=== PATIENT | male | born 1980 | race African-American/Black ===

== ENCOUNTER 2017-10-15 20:28 | Emergency (ER) | payer OTHER ==
[~2017-10-15] VITALS: Ht 185.4 cm; Wt 102.1 kg
[2017-10-15] MEDS ORDERED: TIZANIDINE HCL4 MG PO (22:13)
[2017-10-15] MEDS ORDERED: ULTRAM 50MG TAB50 MG PO (22:16)
[2017-10-15 22:45] VITALS: BP 122/70
== END 2017-10-15 22:46 | disposition home or self-care (01) ==
LOC: ER 20:28
DX: S46.811A Strain of other muscles, fascia and tendons at shoulder and upper arm level, right arm, initial encounter (principal); S50.02XA Contusion of left elbow, initial encounter; M54.2 Cervicalgia; V43.52XA Car driver injured in collision with other type car in traffic accident, initial encounter; Y93.89 Activity, other specified; Y92.89 Other specified places as the place of occurrence of the external cause; Y99.8 Other external cause status

== ENCOUNTER 2017-10-25 23:03 | Emergency (ER) | payer OTHER ==
[~2017-10-25] VITALS: Ht 185.4 cm; Wt 86.2 kg
[~2017-10-25 23:03] MED LIST: TIZANIDINE HCL4 MG PO; ULTRAM 50MG TAB50 MG PO
[2017-10-25] MEDS ORDERED: NORCO 5-325 TA1 EACH PO (23:18)
[2018-07-13] MEDS ORDERED: NORFLEX100 MG PO (00:17)
[2018-07-13] MEDS ORDERED: NAPROSYN500 MG PO (00:17)
== END 2017-10-25 23:53 | disposition home or self-care (01) ==
LOC: ER 23:03
DX: S16.1XXA Strain of muscle, fascia and tendon at neck level, initial encounter (principal); M25.522 Pain in left elbow; M54.5 Low back pain; V43.52XA Car driver injured in collision with other type car in traffic accident, initial encounter; Y93.I9 Activity, other involving external motion; Y92.89 Other specified places as the place of occurrence of the external cause; Y99.8 Other external cause status

== ENCOUNTER 2018-01-22 12:59 | Emergency (ER) | payer OTHER ==
[~2018-01-22] VITALS: Ht 185.4 cm; Wt 98.4 kg
[~2018-01-22 12:59] MED LIST changes: +NORCO 5-325 TA1 EACH PO
[2018-01-22] MEDS ORDERED: BACTROBAN15 GM TOP (13:35)
[2018-01-22] MEDS ORDERED: LOCOID 0.1% CRE15 GM TOP (13:43)
[2018-01-22 14:36] VITALS: BP 117/73
== END 2018-01-22 14:37 | disposition home or self-care (01) ==
LOC: ER 12:59
DX: L02.413 Cutaneous abscess of right upper limb (principal); W57.XXXA Bitten or stung by nonvenomous insect and other nonvenomous arthropods, initial encounter; Y93.89 Activity, other specified; Y92.89 Other specified places as the place of occurrence of the external cause; Y99.8 Other external cause status

== ENCOUNTER 2018-05-16 03:02 | Emergency (ER) | payer OTHER ==
[~2018-05-16] VITALS: Ht 185.4 cm; Wt 99.8 kg
[~2018-05-16 03:02] MED LIST changes: +BACTROBAN15 GM TOP; +LOCOID 0.1% CRE15 GM TOP
[2018-05-16] MEDS ORDERED: NOHOMEMEDICATIONS (03:14)
[2018-05-16] MEDS ORDERED: IBUPROFEN 800800 MG PO (03:55)
[2018-05-16 04:10] VITALS: BP 130/72
== END 2018-05-16 04:11 | disposition home or self-care (01) ==
LOC: ER 03:02
DX: J02.8 Acute pharyngitis due to other specified organisms (principal); B97.89 Other viral agents as the cause of diseases classified elsewhere

== ENCOUNTER 2020-08-06 04:08 | Emergency (ER) | payer OTHER ==
[~2020-08-06] VITALS: Ht 185.4 cm; Wt 98.9 kg
[~2020-08-06 04:08] MED LIST changes: +IBUPROFEN 800800 MG PO; +NAPROSYN500 MG PO; +NOHOMEMEDICATIONS; +NORFLEX100 MG PO
[2020-08-06 05:54] VITALS: BP 134/63
== END 2020-08-06 05:54 | disposition home or self-care (01) ==
LOC: ER 04:08
DX: M25.551 Pain in right hip (principal); M25.561 Pain in right knee; V47.5XXA Car driver injured in collision with fixed or stationary object in traffic accident, initial encounter; Y93.89 Activity, other specified; Y92.89 Other specified places as the place of occurrence of the external cause; Y99.8 Other external cause status

== ENCOUNTER 2021-11-12 23:20 | Emergency (ER) | payer BC ==
[~2021-11-12] VITALS: Ht 188 cm; Wt 108.9 kg
[2021-11-13] MEDS ORDERED: DOXYCYCLINE 10100 M2 PO (00:08)
[2021-11-13 01:09] LABS: ABSOLUTE NEUTROPHILS 6.2 thou/uL (1.4-8.2); BASOPHILS 0.9 % (0.0-2.0); EOSINOPHILS 4.1 % (0.0-3.0); HEMATOCRIT 46.7 % (42.0-52.0); HEMOGLOBIN 15.5 gm/dL (14.0-18.0); LYMPHOCYTES 23.4 % (24.0-44.0); MCH 30.4 pg (26.0-34.0); MCHC 33.3 g/dL (28.0-37.0); MCV 91.5 fL (80.0-100.0); MONOCYTES 7.5 % (1.0-8.0); PLATELET COUNT 343 thou/uL (150-400); POLYS 64.1 % (36.0-66.0); RDW 13.3 % (10.5-14.5); WBC 9.6 thou/uL (4.0-11.0)
[2021-11-13 01:18] LABS: CALCIUM 8.4 mg/dL (8.5-10.1); CREATININE 1.4 mg/dL (0.7-1.3); POTASSIUM 3.8 mmol/L (3.5-5.1)
[2021-11-13] MEDS ORDERED: COLACE100 MG PO (01:22)
[2021-11-13 01:56] VITALS: BP 170/71
== END 2021-11-13 02:00 | disposition home or self-care (01) ==
LOC: ER 23:20
PROVIDERS: Emergency Medicine
DX: K92.1 Melena (principal); Z79.899 Other long term (current) drug therapy

== ENCOUNTER 2021-11-17 18:08 | Emergency (ER) | payer BC ==
[~2021-11-17] VITALS: Ht 185.4 cm; Wt 108.9 kg
[~2021-11-17 18:08] MED LIST changes: +COLACE100 MG PO; +DOXYCYCLINE 10100 M2 PO
[2021-11-17 18:24] LABS: URINE BILIRUBIN NEGATIVE (Negative); URINE BLOOD 3+ (Negative); URINE COLOR YELLOW; URINE GLUCOSE-RANDOM* NEGATIVE (Negative); URINE KETONES NEGATIVE (Negative); URINE NITRITE-REFLEX NEGATIVE (Negative); URINE PROTEIN (DIPSTICK) TRACE (Negative); URINE UROBILINOGEN 0.2 E.U./dl (0.2-1.0)
[2021-11-17 18:25] LABS: URINE CLARITY HAZY; URINE LEUKOCYTES-REFLEX 3+ (Negative)
[2021-11-17 18:32] LABS: BACTERIA-REFLEX >30 Many /HPF (None Seen); CASTS None Seen /LPF (None Seen); CRYSTALS None Seen /LPF (None Seen); SQUAMOUS 0-3 Few /LPF (0-3); URINE RBC >20 Many /HPF (NONE SEEN); URINE WBC-REFLEX >25 Many /HPF (0-5)
[2021-11-17] MEDS ORDERED: CEPHALEXIN500 MG PO (18:54)
[2021-11-17 19:35] VITALS: BP 141/66
== END 2021-11-17 19:36 | disposition home or self-care (01) ==
LOC: ER 18:08
PROVIDERS: Emergency Medicine
DX: N39.0 Urinary tract infection, site not specified (principal); Z79.899 Other long term (current) drug therapy